=== PATIENT | male | born 2000 | race Two or more races ===

== ENCOUNTER 2020-01-08 14:12 | Emergency (ER) | payer MEDICAID ==
[~2020-01-08] VITALS: Ht 185.4 cm; Wt 82.0 kg
[2020-01-08 14:46] VITALS: BP 148/89
[2020-01-08] MEDS ORDERED: ACETAMINOPHEN 325MG TABLET PO STA (15:56)
== END 2020-01-08 16:49 | disposition home or self-care (01) ==
LOC: ER 14:12
DX: S93.402A Sprain of unspecified ligament of left ankle, initial encounter (principal); W52.XXXA Crushed, pushed or stepped on by crowd or human stampede, initial encounter; Y93.89 Activity, other specified; Y92.89 Other specified places as the place of occurrence of the external cause; Y99.8 Other external cause status
CPT/HCPCS: 73610; 99283